=== PATIENT | female | born 1985 | race Caucasian/White ===

== ENCOUNTER 2021-12-10 14:42 | Outpatient (REF) | payer OTHER, SELFPAY ==
[2021-12-10 15:31] LABS: COVID-19 Test Negative (Negative); IDNOW Serial# 08D9AD1C
== END 2021-12-10 14:43 | disposition home or self-care (01) ==
LOC: HO.LAB 14:42
PROVIDERS: Visit Provider Internal Medicine
DX: Z20.822 Contact with and (suspected) exposure to COVID-19 (principal)
CPT/HCPCS: 87635; C9803

== ENCOUNTER 2021-12-19 11:28 | Outpatient (REF) | payer OTHER, SELFPAY ==
[2021-12-19 12:12] LABS: COVID-19 Test Negative (Negative); IDNOW Serial# 08D9AD1C
== END 2021-12-19 11:29 | disposition home or self-care (01) ==
LOC: HO.LAB 11:28
PROVIDERS: Visit Provider Internal Medicine
DX: Z20.822 Contact with and (suspected) exposure to COVID-19 (principal)
CPT/HCPCS: 87635; C9803

== ENCOUNTER 2022-06-26 11:48 | Emergency (ER) | payer OTHER, SELFPAY ==
[2022-06-26 11:49] VITALS: BP 104/71; PULSE 82; RESP 18; TEMP 36.4; O2SAT 100; BMI 26.9
[2022-06-26 12:18] LABS: Appearance Urine Clear; Color Urine Dark Yellow; Glucose Urine UA Negative (Negative); Leukocyte Esterase Urine Negative (Negative); Nitrite Urine Negative (Negative); PH 5.5 (5.0-9.0); UMIC TRIGGER UA YES; Urine Blood Moderate (2+) (Negative); Urine Ketones Trace mg/dL (Negative); Urine Protein Trace mg/dL (Neg-Trace)
[2022-06-26 12:21] LABS: Bacteria Urine None Seen (None Seen); WBC Urine 0-5 /HPF (0-5)
--- NOTE | 2022-06-26 12:49 | ED.GENADULT ---
HPI - General Adult General Chief complaint: General Medical <NIKITA Medina - Last Filed: 06/26/22 12:53> Stated complaint: Covid + <NIKITA Medina - Last Filed: 06/26/22 12:53> Time Seen by Provider: 06/26/22 13:19 <NIKITA Medina - Last Filed: 06/26/22 12:53> Source: patient and family (patient's mother) <NIKITA Law - Last Filed: 06/26/22 16:05> Mode of arrival: ambulatory <NIKITA Law Last Filed: 06/26/22 16:05> Limitations: no limitations <NIKITA Law Last Filed: 06/26/22 16:05> History of Present Illness HPI narrative: Patient is a 36 year old assigned female at with no reported medical history presenting to the emergency department today with right sided flank pain. Patient states that she is COVID-19 positive and has been having right sided flank pain. Patient states that she is nauseous. Patient states that she has been having difficulty urinating as well, when she urinates she feels as though hardly any is coming out. Patient denies any dizziness, lightheadedness, abdominal pain, vomiting, fever, chills, blurry vision, double vision, loss of vision, chest pain, difficulty breathing, shortness of breath, back pain, night sweats, pain with urination, blood in her urine or stool, syncope or a near syncopal episode, recent trauma or falls, bowel incontinence, bladder incontinence, bowel retention, bladder retention, or any other complaints at this time. <NIKITA Law - Last Filed: 06/26/22 16:05> Onset (ago): day(s) <NIKITA Law - Last Filed: 06/26/22 16:05> Location: right (flank) <NIKITA Law Last Filed: 06/26/22 16:05> Radiation: non-radiation <NIKITA Law Last Filed: 06/26/22 16:05> Severity: mild <NIKITA Law Last Filed: 06/26/22 16:05> Severity scale (1-10): 3 <NIKITA Law Last Filed: 06/26/22 16:05> Quality: dull <NIKITA Law - Last Filed: 06/26/22 16:05> Pain Consistency: constant <NIKITA Law Last Filed: 06/26/22 16:05> Relieving factors: none <NIKITA Law Last Filed: 06/26/22 16:05> Exacerbating factors: none <NIKITA Law Last Filed: 06/26/22 16:05> Associated symptoms: nausea/vomiting <NIKITA Law - Last Filed: 06/26/22 16:05> Treatments prior to arrival: none <NIKITA Law Last Filed: 06/26/22 16:05> Related Data Home medications: Previous Rx's Medication Instructions Recorded prednisone 20 mg tablet 20 mg PO DAILY 5 days #5 tabs 06/26/22 tamsulosin 0.4 mg capsule (Flomax) 0.4 mg PO DAILY #14 caps 06/26/22 <NIKITA Medina - Last Filed: 06/26/22 12:53> Allergies/adverse reactions: Allergies Allergy/AdvReac Type Severity Reaction Status Date / Time doxycycline AdvReac Nausea Verified 06/26/22 13:52 <NIKITA Medina - Last Filed: 06/26/22 12:53> Review of Systems Constitutional: Constitutional: Reports no additional constitutional complaints, Denies chills, Denies fever(s) and Denies night sweats <NIKITA Law - Last Filed: 06/26/22 16:05> Eyes: Eyes: Reports no additional eye complaints, Denies blurry vision, Denies change in vision, Denies diplopia, Denies eye discharge, Denies loss of vision and Denies eye pain <NIKITA Law - Last Filed: 06/26/22 16:05> ENT: Denies dizziness <NIKITA Law Last Filed: 06/26/22 16:05> Cardiovascular: Cardiovascular: Reports no additional cardiovascular complaints, Denies chest pain, Denies lightheadedness, Denies Loss of Consciousness and Denies dyspnea <NIKITA Law - Last Filed: 06/26/22 16:05> Respiratory: Respiratory: Reports no additional respiratory complaints and Denies dyspnea <NIKITA Law - Last Filed: 06/26/22 16:05> Gastrointestinal: Gastrointestinal: Reports no additional gastrointestinal complaints, Denies abdominal pain, Denies melena, Denies hematochezia, Denies change in bowel habits, Denies change in stool character and Reports nausea <NIKITA Law - Last Filed: 06/26/22 16:05> Genitourinary: Genitourinary: Denies hematuria, Denies urinary frequency, Denies dysuria, Reports flank pain (right sided), Denies urinary incontinence, Denies urinary hesitancy and Denies urinary urgency <NIKITA Law - Last Filed: 06/26/22 16:05> Musculoskeletal: Musculoskeletal: Reports no additional musculoskeletal complaints, Denies numbness and Denies tingling <NIKITA Law - Last Filed: 06/26/22 16:05> Neurologic: Denies dizziness, Denies loss of vision, Denies numbness and Denies tingling <NIKITA Law - Last Filed: 06/26/22 16:05> Psychiatric: Psychiatric: Reports no additional psychiatric complaints <NIKITA Law - Last Filed: 06/26/22 16:05> Endocrine: Endocrine: Reports no additional endocrine complaints <NIKITA Law - Last Filed: 06/26/22 16:05> Hematologic/Lymphatic: Hematologic/Lymphatic: Reports no additional hematologic/lymphatic complaints <NIKITA Law - Last Filed: 06/26/22 16:05> Allergic/Immunologic: Allergic/Immunologic: Reports no additional allergic/immunologic complaints <NIKITA Law - Last Filed: 06/26/22 16:05> PMF Past Medical History Attestation statement: The following information was validated with the patient. <NIKITA Law - Last Filed: 06/26/22 16:05> Source: old records reviewed, obtained from family (patient's mother) and nursing notes reviewed <NIKITA Law - Last Filed: 06/26/22 16:05> Medical History: Medical History Migraine <NIKITA Medina - Last Filed: 06/26/22 12:53> Social History Social History: Social History Smoked in Last 30 Days: No Use of substances other than those prescribed or required for medical reasons: No Advance Directives: No <NIKITA Medina - Last Filed: 06/26/22 12:53> Physical Exam ED Vital Signs: Vital Signs - 24 hr 06/26/22 11:49 Temperature 97.5 F Pulse Rate 82 Respiratory Rate 18 Blood Pressure 104/71 Pulse Oximetry 100 Oxygen Delivery Method Room Air BMI result Body Mass Index 26.9 <NIKITA Medina - Last Filed: 06/26/22 12:53> Vital Signs - 24 hr 06/26/22 11:49 Temperature 97.5 F Pulse Rate 82 Respiratory Rate 18 Blood Pressure 104/71 Pulse Oximetry 100 Oxygen Delivery Method Room Air BMI result Body Mass Index 26.9 <NIKITA Law - Last Filed: 06/26/22 16:05> Const General: cooperative, no acute distress, alert and awake <NIKITA Law - Last Filed: 06/26/22 16:05> Nutritional Appearance: well nourished <NIKITA Law - Last Filed: 06/26/22 16:05> Orientation/consciousness: patient oriented x3 <NIKITA Law - Last Filed: 06/26/22 16:05> Limitations: no limitations <NIKITA Law - Last Filed: 06/26/22 16:05> HENMT Head: Yes normal to inspection and Yes atraumatic <NIKITA Law - Last Filed: 06/26/22 16:05> Ears: hearing grossly normal bilaterally and external ears normal <NIKITA Law - Last Filed: 06/26/22 16:05> General nose exam: Normal external nose present, no nasal discharge noted and no epistaxis <NIKITA Law - Last Filed: 06/26/22 16:05> Face and sinus: Yes normal facial exam, No abrasion and No laceration <NIKITA Law Last Filed: 06/26/22 16:05> Mouth: Normal oral and palatal mucosa present, no drooling and no muffled voice <Beverly Mark [facility] Last Filed: 06/26/22 16:05> Eyes General: appearance normal, both eyes and all related structures <Beverly Mark [facility] Last Filed: 06/26/22 16:05> Periorbital: periorbital findings normal <Beverly Mark [facility] Last Filed: 06/26/22 16:05> Eyelids: Yes eyelids normal <Beverly Mark [facility] Last Filed: 06/26/22 16:05> Conjunctivae: conjunctivae normal <Beverly Mark [facility] Last Filed: 06/26/22 16:05> Pupils: Equal, round and reactive pupils present <Beverly Mark [facility] Last Filed: 06/26/22 16:05> EOM: EOMs intact bilaterally <Beverly Mark [facility] Last Filed: 06/26/22 16:05> Neck Neck: Yes normal visual inspection, Yes full ROM and Yes no lymphadenopathy <Beverly Mark [facility] Last Filed: 06/26/22 16:05> Chest Chest palpation & inspection: normal inspection of the chest <Beverly Mark [facility] Last Filed: 06/26/22 16:05> Resp Effort & Inspection: normal respiratory effort and able to speak in complete sentences <Beverly Mark [facility] Last Filed: 06/26/22 16:05> Auscultation: clear to auscultation bilaterally <Beverly Mark [facility] Last Filed: 06/26/22 16:05> Cardio Rate: regular rate <Beverly Mark [facility] Last Filed: 06/26/22 16:05> Rhythm: regular rhythm <Beverly Mark [facility] Last Filed: 06/26/22 16:05> GI Inspection: Yes normal to inspection <Beverly Mark [facility] Last Filed: 06/26/22 16:05> Palpation (GI): Soft to palpation, not firm, nontender and no guarding <Beverly Mark [place] - Last Filed: 06/26/22 16:05> General: Yes CVA tenderness on the right <Beverly Makr [place] - Last Filed: 06/26/22 16:05> Back/Spine/Pelvis Back: CVA tenderness <Beverly Mark [place] - Last Filed: 06/26/22 16:05> Neuro General: patient oriented x3 and moves all extremities <Beverly Mark NIKITA - Last Filed: 06/26/22 16:05> Cranial nerves: Yes Equal, round and reactive pupils present <Beverly Mark NIKITA - Last Filed: 06/26/22 16:05> Cognition (Neuro): normal cognition <Beverly Mark [place] - Last Filed: 06/26/22 16:05> Motor exam (neuro): 5/5 motor strength present throughout <Beverly Mark [place] - Last Filed: 06/26/22 16:05> Sensory Exam: Normal double simultaneous stimulation for sensation <Beverly Mark NIKITA - Last Filed: 06/26/22 16:05> Coordination: veitrm-po-evws test normal <Beverly Mark [place] - Last Filed: 06/26/22 16:05> Extrem General: Yes normal to inspection, Yes full ROM and Yes capillary refill normal <Beverly MarkNIKITA - Last Filed: 06/26/22 16:05> Psych Appearance: grossly normal <Beverly Mark [place] - Last Filed: 06/26/22 16:05> Mental Status: mental status grossly normal <Beverly Mark NIKITA - Last Filed: 06/26/22 16:05> Affect: normal affect <Beverly Mark [place] - Last Filed: 06/26/22 16:05> Attitude: cooperative <Beverly Mark NIKITA - Last Filed: 06/26/22 16:05> Thought process: Normal thought process present <Beverly MarkNIKITA - Last Filed: 06/26/22 16:05> Thought content: Normal thought content present <Beverly MarkNIKITA - Last Filed: 06/26/22 16:05> Insight: Good insight present (Psych) <Beverly MarkNIKITA - Last Filed: 06/26/22 16:05> Course Course Course Narrative: Rapid medical [id number] female presenting to the ER for evaluation of severe right-sided flank pain, nausea and vomiting that started at 8am today. Pain is severe and located in right flank, radiates to right lower abdomen. Has been home sick with COVID for the last 1 week. On arrival to the ER vital signs are stable, patient afebrile. She appears extremely uncomfortable, crawled over and pain with vomiting. Concern for possible kidney stone. Labs, UA, CT scan have been ordered. Plan per provider in the main ER. <NIKITA Medina - Last Filed: 06/26/22 12:53> Medications Administered Discontinued Medications Generic Name Dose Route Start Last Admin Trade Name Freq PRN Reason Stop Dose Admin Sodium Chloride 1,000 mls @ 999 mls/hr 06/26/22 13:30 06/26/22 15:13 Ns IV 06/26/22 14:30 Infused .Q1H1M LISA Infusion Ketorolac Tromethamine 15 mg 06/26/22 13:27 06/26/22 13:49 Ketorolac Tromethamine 15 Mg/Ml Vial IVPUSH 06/26/22 13:28 15 mg ONCE ONE Administration Ketorolac Tromethamine 15 mg 06/26/22 15:08 06/26/22 15:13 Ketorolac Tromethamine 15 Mg/Ml Vial IVPUSH 06/26/22 15:09 15 mg ONCE ONE Administration Ondansetron HCl 4 mg 06/26/22 12:48 06/26/22 12:52 Ondansetron Odt 4 Mg Tab.Rapdis TRANSLINGU 06/26/22 12:49 4 mg ONCE ONE Administration <NIKITA Medina - Last Filed: 06/26/22 12:53> Medications Administered Discontinued Medications Generic Name Dose Route Start Last Admin Trade Name Freq PRN Reason Stop Dose Admin Sodium Chloride 1,000 mls @ 999 mls/hr 06/26/22 13:30 06/26/22 15:13 Ns IV 06/26/22 14:30 Infused .Q1H1M LISA Infusion Ketorolac Tromethamine 15 mg 06/26/22 13:27 06/26/22 13:49 Ketorolac Tromethamine 15 Mg/Ml Vial IVPUSH 06/26/22 13:28 15 mg ONCE ONE Administration Ketorolac Tromethamine 15 mg 06/26/22 15:08 06/26/22 15:13 Ketorolac Tromethamine 15 Mg/Ml Vial IVPUSH 06/26/22 15:09 15 mg ONCE ONE Administration Ondansetron HCl 4 mg 06/26/22 12:48 06/26/22 12:52 Ondansetron Odt 4 Mg Tab.Erica MCCORDINGPal 06/26/22 12:49 4 mg ONCE ONE Administration <NIKITA Law - Last Filed: 06/26/22 16:05> Medical Decision Making Medical Decision Making MDM Narrative: Patient is a 36 year old assigned female at with no reported medical history presenting to the emergency department today with COVID-19 and right sided flank pain. Patient's physical exam showed right sided CVA tenderness but was otherwise unremarkable. Patient's blood work showed an elevated WBC count of 13.2. Patient's urine showed 11-20 RBCs but was otherwise unremarkable. Patient's abdominal CT showed mild right hydroureteronephrosis with a 0.3cm obstructing calculus at the right ureterovesicular junction. I explained my physical exam findings as well as all test results to the patient and the patient's mother. I answered all questions asked by the patient and the patient's mother. Patient received IV Toradol and fluids which she stated helped her symptoms significantly. I spoke to the urologist who recommended the patient be discharged with PO Flomax and Prednisone and follow up with their office next week. I stressed the importance of the patient taking her medication as prescribed. I stressed the importance of the patient following up with her primary care provider and a urologist. I stressed the importance of the patient returning to the emergency department immediately if her symptoms were to worsen or if she were to develop any dizziness, shortness of breath, difficulty breathing, chest pain, blurry vision, loss of vision, nausea, vomiting, abdominal pain, fever, chills, back pain, or any other complaints. Patient and the patient's mother verbalized agreement and understanding with this treatment plan and discharge. 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 <NIKITA Law - Last Filed: 06/26/22 16:05> Result Diagrams: : 06/26/22 13:33 06/26/22 13:33 <NIKITA Medina - Last Filed: 06/26/22 12:53> Labs: Lab Results 06/26/22 06/26/22 06/26/22 Range/Units 12:08 12:08 13:33 WBC 13.2 H (4.8-10.8) X10*3/uL RBC 5.08 (4.20-5.50) X10*6/uL Hgb 14.6 (12.0-16.0) g/dl Hct 43.0 (37.0-47.0) % MCV 84.6 (80.0-98.0) fL MCH 28.7 (27.0-33.0) pg MCHC 34.0 (31.0-35.0) g/dl RDW 12.1 (11.0-16.0) % Plt Count 361 (160-400) X10*3/uL MPV 10.1 (9.4-12.3) fL Absolute Nucleated RBC 0.000 (0.0-0.012) X10*3/uL Nucleated RBC % (auto) 0.0 (0.0-0.2) /100WBC Sodium (135-145) mmol/L Potassium (3.3-5.1) mmol/L Chloride (96-108) mmol/L Carbon Dioxide (22-29) mmol/L Anion Gap (12-20) BUN (9-16) mg/dL Creatinine (0.5-1.4) mg/dL Estim Creat Clear Calc Estimated GFR Random Glucose (60-115) mg/dL Calcium (8.4-10.2) mg/dL Total Bilirubin (0.0-1.0) mg/dL AST (5-31) U/L ALT (0-31) U/L Alkaline Phosphatase (39-117) U/L Total Protein (6.5-8.0) g/dL Albumin (3.5-5.0) g/dL Urine Color Dark Yellow Urine Appearance Clear Urine pH 5.5 (5.0-9.0) Ur Specific [place] 1.020 (1.005-1.025) Urine Protein Trace (Neg-Trace) mg/dL Urine Glucose (UA) Negative (Negative) mg/dL Urine Ketones Trace (Negative) mg/dL Urine Blood Moderate (2+) H (Negative) Urine Nitrite Negative (Negative) Ur Leukocyte Esterase Negative (Negative) Urine RBC 11-20 H (0-2) /HPF Urine WBC 0-5 (0-5) /HPF Ur Squamous Epith Cells 6-10 (0-2) /HPF Urine Bacteria None Seen (None Seen) Hyaline Casts 3-5 (0-2) /LPF Urine Test NEGATIVE (NEGATIVE) 06/26/22 Range/Units 13:33 WBC (4.8-10.8) X10*3/uL RBC (4.20-5.50) X10*6/uL Hgb (12.0-16.0) g/dl Hct (37.0-47.0) % MCV (80.0-98.0) fL MCH (27.0-33.0) pg MCHC (31.0-35.0) g/dl RDW (11.0-16.0) % Plt Count (160-400) X10*3/uL MPV (9.4-12.3) fL Absolute Nucleated RBC (0.0-0.012) X10*3/uL Nucleated RBC % (auto) (0.0-0.2) /100WBC Sodium 141 (135-145) mmol/L Potassium 4.7 (3.3-5.1) mmol/L Chloride 107 (96-108) mmol/L Carbon Dioxide 24 (22-29) mmol/L Anion Gap 15 (12-20) BUN 15 (9-16) mg/dL Creatinine 0.83 (0.5-1.4) mg/dL Estim Creat Clear Calc 91.5 Estimated GFR > 60 Random Glucose 140 H (60-115) mg/dL Calcium 9.7 (8.4-10.2) mg/dL Total Bilirubin 0.7 (0.0-1.0) mg/dL AST 20 (5-31) U/L ALT 16 (0-31) U/L Alkaline Phosphatase 42 (39-117) U/L Total Protein 7.4 (6.5-8.0) g/dL Albumin 4.5 (3.5-5.0) g/dL Urine Color Urine Appearance Urine pH (5.0-9.0) Ur Specific [place] (1.005-1.025) Urine Protein (Neg-Trace) mg/dL Urine Glucose (UA) (Negative) mg/dL Urine Ketones (Negative) mg/dL Urine Blood (Negative) Urine Nitrite (Negative) Ur Leukocyte Esterase (Negative) Urine RBC (0-2) /HPF Urine WBC (0-5) /HPF Ur Squamous Epith Cells (0-2) /HPF Urine Bacteria (None Seen) Hyaline Casts (0-2) /LPF Urine Test (NEGATIVE) <NIKITA Medina - Last Filed: 06/26/22 12:53> Lab Results 06/26/22 06/26/22 06/26/22 Range/Units 12:08 12:08 13:33 WBC 13.2 H (4.8-10.8) X10*3/uL RBC 5.08 (4.20-5.50) X10*6/uL Hgb 14.6 (12.0-16.0) g/dl Hct 43.0 (37.0-47.0) % MCV 84.6 (80.0-98.0) fL MCH 28.7 (27.0-33.0) pg MCHC 34.0 (31.0-35.0) g/dl RDW 12.1 (11.0-16.0) % Plt Count 361 (160-400) X10*3/uL MPV 10.1 (9.4-12.3) fL Absolute Nucleated RBC 0.000 (0.0-0.012) X10*3/uL Nucleated RBC % (auto) 0.0 (0.0-0.2) /100WBC Sodium (135-145) mmol/L Potassium (3.3-5.1) mmol/L Chloride (96-108) mmol/L Carbon Dioxide (22-29) mmol/L Anion Gap (12-20) BUN (9-16) mg/dL Creatinine (0.5-1.4) mg/dL Estim Creat Clear Calc Estimated GFR Random Glucose (60-115) mg/dL Calcium (8.4-10.2) mg/dL Total Bilirubin (0.0-1.0) mg/dL AST (5-31) U/L ALT (0-31) U/L Alkaline Phosphatase (39-117) U/L Total Protein (6.5-8.0) g/dL Albumin (3.5-5.0) g/dL Urine Color Dark Yellow Urine Appearance Clear Urine pH 5.5 (5.0-9.0) Ur Specific [place] 1.020 (1.005-1.025) Urine Protein Trace (Neg-Trace) mg/dL Urine Glucose (UA) Negative (Negative) mg/dL Urine Ketones Trace (Negative) mg/dL Urine Blood Moderate (2+) H (Negative) Urine Nitrite Negative (Negative) Ur Leukocyte Esterase Negative (Negative) Urine RBC 11-20 H (0-2) /HPF Urine WBC 0-5 (0-5) /HPF Ur Squamous Epith Cells 6-10 (0-2) /HPF Urine Bacteria None Seen (None Seen) Hyaline Casts 3-5 (0-2) /LPF Urine Test NEGATIVE (NEGATIVE) 06/26/ Range/Units 13:33 WBC (4.8-10.8) X10*3/uL RBC (4.20-5.50) X10*6/uL Hgb (12.0-16.0) g/dl Hct (37.0-47.0) % MCV (80.0-98.0) fL MCH (27.0-33.0) pg MCHC (31.0-35.0) g/dl RDW (11.0-16.0) % Plt Count (160-400) X10*3/uL MPV (9.4-12.3) fL Absolute Nucleated RBC (0.0-0.012) X10*3/uL Nucleated RBC % (auto) (0.0-0.2) /100WBC Sodium 141 (135-145) mmol/L Potassium 4.7 (3.3-5.1) mmol/L Chloride 107 (96-108) mmol/L Carbon Dioxide 24 (22-29) mmol/L Anion Gap 15 (12-20) BUN 15 (9-16) mg/dL Creatinine 0.83 (0.5-1.4) mg/dL Estim Creat Clear Calc 91.5 Estimated GFR > 60 Random Glucose 140 H (60-115) mg/dL Calcium 9.7 (8.4-10.2) mg/dL Total Bilirubin 0.7 (0.0-1.0) mg/dL AST 20 (5-31) U/L ALT 16 (0-31) U/L Alkaline Phosphatase 42 (39-117) U/L Total Protein 7.4 (6.5-8.0) g/dL Albumin 4.5 (3.5-5.0) g/dL Urine Color Urine Appearance Urine pH (5.0-9.0) Ur Specific [place] (1.005-1.025) Urine Protein (Neg-Trace) mg/dL Urine Glucose (UA) (Negative) mg/dL Urine Ketones (Negative) mg/dL Urine Blood (Negative) Urine Nitrite (Negative) Ur Leukocyte Esterase (Negative) Urine RBC (0-2) /HPF Urine WBC (0-5) /HPF Ur Squamous Epith Cells (0-2) /HPF Urine Bacteria (None Seen) Hyaline Casts (0-2) /LPF Urine Test (NEGATIVE) <NIKITA Law - Last Filed: 06/26/22 16:05> Radiology Impression Discussion of test interpretation with radiology: I have reviewed the radiologist's reading. <NIKITA Law - Last Filed: 06/26/22 16:05> Radiologist Impression: EXAMINATION: CT ABDOMEN AND PELVIS WITHOUT CONTRAST? CLINICAL INFORMATION: Right flank pain. Hematuria.? COMPARISON: None? TECHNIQUE: Multidetector volumetric imaging was performed from the superior aspect of the liver through the pubic symphysis. Sagittal and coronal reformatted images were obtained on the technologist's workstation.? This CT examination was performed using dose optimization techniques as appropriate, variously including the following: *Automated exposure control *Adjustment of mA and/or kV according to patient size (this includes techniques or standardized protocols for targeted exams where dose is matched to indication/reason for exam; i.e. extremities or head) *Use of iterative reconstruction technique DLP: 674 mGy-cm FINDINGS: LUNG BASES: The visualized lung bases are unremarkable.? LIVER, GALLBLADDER, AND BILIARY TREE: The liver is normal in size, shape, and attenuation. No focal hepatic lesion or biliary ductal dilatation is present. The gallbladder is unremarkable with no evidence of radiopaque gallstones, gallbladder wall thickening, or obvious pericholecystic inflammatory changes.? PANCREAS: Unremarkable.? SPLEEN: Unremarkable.? ADRENAL GLANDS: Unremarkable.? KIDNEYS AND URETERS: The kidneys are normal in size, shape, and attenuation. Mild right hydroureteronephrosis with perinephric and periureteral fat stranding. There is a 0.3 cm calculus at the right ureterovesicular junction. No additional calculi seen. No left hydronephrosis. BLADDER: Unremarkable.? GASTROINTESTINAL TRACT: The small and large bowel are unremarkable. The appendix is unremarkable.? ABDOMINAL WALL: No significant hernia is appreciated.? LYMPH NODES: Normal. VASCULAR: Unremarkable. PELVIC VISCERA: The uterus and adnexa are unremarkable. Trace pelvic free fluid is likely physiologic.? OSSEOUS STRUCTURES: No acute or suspicious osseous abnormality. Mild degenerative changes of the spine.? CT/CT abdomen pelvis wo IV con IMPRESSION: Mild right hydroureteronephrosis with a 0.3 cm obstructing calculus at the right ureterovesicular junction. ? Fleischner guidelines were followed. Dictated By: Raji Alexander MD Signed By: Electronically signed by Raji Alexander MD 06/26/22 1433 <NIKITA Law - Last Filed: 06/26/22 16:05> Independent Historian Clinical information obtained from an independent historian. History obtained from or confirmed by: Parent (patient's mother) <NIKITA Law - Last Filed: 06/26/22 16:05> Discharge Plan Discharge Clinical Impression: Calculus, renal, COVID-19 <NIKITA Medina - Last Filed: 06/26/22 12:53> Patient Disposition: Home, Self-Care <NIKITA Medina - Last Filed: 06/26/22 12:53> Instructions: Kidney Stones (ED), COVID-19 (Coronavirus Disease 2019) (ED) <NIKITA Medina - Last Filed: 06/26/22 12:53> Additional Instructions: Follow up with your primary care provider. Return to the emergency department immediately if your symptoms worsen or if you develop any dizziness, shortness of breath, difficulty breathing, chest pain, blurry vision, loss of vision, nausea, vomiting, abdominal pain, fever, chills, back pain, or any other complaints. <NIKITA Medina - Last Filed: 06/26/22 12:53> Prescriptions: New tamsulosin [Flomax] 0.4 mg capsule 0.4 mg PO DAILY Qty: 14 0RF prednisone 20 mg tablet 20 mg PO DAILY 5 Days Qty: 5 0RF <NIKITA Medina - Last Filed: 06/26/22 12:53> Referrals: [facility] [place] Family Medicine [Provider Group] (Call to establish and follow up with a primary care provider. If you already have a primary care provider, please follow up with them. ) [facility] Primary Care, [place] [Provider Group] (Call to establish and follow up with a primary care provider. If you already have a primary care provider, please follow up with them. ) [facility] [place] Primary Care,[place] [Provider Group] (Call to establish and follow up with a primary care provider. If you already have a primary care provider, please follow up with them. ) [facility] [Provider Group] (Call to establish and follow up with a urologist. ) <NIKITA Medina - Last Filed: 06/26/22 12:53> Stand Alone Forms: Work/School Release <NIKITA Medina - Last Filed: 06/26/22 12:53> Interventions: ED Discharge Assessment Last Done: 06/26/22 15:16 <NIKITA Medina - Last Filed: 06/26/22 12:53> Discharge Date/Time: 06/26/22 15:17 <NIKITA Medina - Last Filed: 06/26/22 12:53> Print Language: Hebrew <NIKITA Medina - Last Filed: 06/26/22 12:53>
[2022-06-26] MEDS: Ondansetron ODT 4 MG TAB.RAPDIS TRANSLINGU (12:52)
[2022-06-26 13:24] LABS: UPreg QC Valid YES; Urine Pregnancy NEGATIVE (NEGATIVE)
[2022-06-26 13:40] LABS: Hemoglobin 14.6 g/dl (12.0-16.0); Mean Corpuscular Hemoglobin 28.7 pg (27.0-33.0); Mean Corpuscular Volume 84.6 fL (80.0-98.0); Mean Platelet Volume 10.1 fL (9.4-12.3); Platelet Count 361 X10*3/uL (160-400); Red Blood Count 5.08 X10*6/uL (4.20-5.50); Red Cell Distribution Width 12.1 % (11.0-16.0); White Blood Count 13.2 X10*3/uL (4.8-10.8)
[2022-06-26] MEDS: Ketorolac Tromethamine 15 MG/ML VIAL IVPUSH ×2 (13:49→15:13)
[2022-06-26] MEDS: 0.9 % Sodium Chloride 1,000 ML 999 ML IV (13:49)
[2022-06-26 14:01] LABS: Alanine Aminotransferase 16 U/L (0-31); Albumin Level 4.5 g/dL (3.5-5.0); Alkaline Phosphatase 42 U/L (39-117); Anion Gap 15 (12-20); Aspartate Amino Transferase 20 U/L (5-31); Bilirubin Total 0.7 mg/dL (0.0-1.0); Blood Urea Nitrogen 15 mg/dL (9-16); Calcium 9.7 mg/dL (8.4-10.2); Carbon Dioxide 24 mmol/L (22-29); Chloride 107 mmol/L (96-108); Creatinine Clr Calc Pharmacy 91.5; Estimated Glomerular Filt Rate > 60; Glucose Random 140 mg/dL (60-115); Potassium 4.7 mmol/L (3.3-5.1); Sodium 141 mmol/L (135-145); Total Protein 7.4 g/dL (6.5-8.0)
== END 2022-06-26 15:17 | disposition home or self-care (01) ==
PROVIDERS: Emergency Provider Student in an Organized Health Care Education/Training Program
DX: U07.1 COVID-19 (principal); N20.0 Calculus of kidney; Z79.899 Other long term (current) drug therapy
CPT/HCPCS: 36415; 74176; 80053; 81001; 81025; 85027; 96361; 96374; 96376; 99284; J1885

== ENCOUNTER 2022-07-08 10:24 | Outpatient (REF) | payer OTHER, SELFPAY ==
[2022-07-08 17:46] LABS: Urine Cytology See Pathology rpt
== END 2022-07-08 10:25 | disposition home or self-care (01) ==
LOC: HO.LAB 10:24
PROVIDERS: Visit Provider Nurse Practitioner Family
DX: N20.0 Calculus of kidney (principal); R31.9 Hematuria, unspecified; Z79.899 Other long term (current) drug therapy
CPT/HCPCS: 88112

== ENCOUNTER 2022-07-08 11:47 | Outpatient (REF) | payer OTHER, SELFPAY ==
[2022-07-08 14:44] LABS: Anion Gap 12 (12-20); Blood Urea Nitrogen 13 mg/dL (9-16); Calcium 9.5 mg/dL (8.4-10.2); Carbon Dioxide 26 mmol/L (22-29); Chloride 104 mmol/L (96-108); Estimated Glomerular Filt Rate > 60; Glucose Random 85 mg/dL (60-115); Phosphorus 3.3 mg/dL (2.7-4.5); Potassium 4.6 mmol/L (3.3-5.1); Sodium 137 mmol/L (135-145)
[2022-07-10 07:58] LABS: Calcium (PTHI) 9.5 mg/dL (8.6-10.2); PTHI 48 pg/mL (16-77)
== END 2022-07-08 11:48 | disposition home or self-care (01) ==
LOC: HO.10HDL 11:47
PROVIDERS: Visit Provider Nurse Practitioner Family
DX: N20.0 Calculus of kidney (principal)
CPT/HCPCS: 36415; 80048; 83735; 83970; 84100

== ENCOUNTER 2022-09-21 07:39 | Outpatient (REF) | payer OTHER, SELFPAY ==
--- NOTE | ~2022-09-21 | US_ITS ---
EXAMINATION: US RETROPERITONEAL LIMITED (RENAL ONLY) CLINICAL INFORMATION: Calculus of kidney. COMPARISON: CT abdomen and pelvis without contrast 06/26/2022. TECHNIQUE: Real-time imaging of the kidneys. FINDINGS: RIGHT KIDNEY: 11.8 x 4.8 x 5.5 cm (SAG x AP x TRV). The kidney is normal in size, contour, and echogenicity. Renal cortical thickness is normal. No calculi or focal parenchymal lesions. No hydronephrosis. LEFT KIDNEY: 12.7 x 5.5 x 5.3 cm (SAG x AP x TRV). The kidney is normal in size, contour, and echogenicity. Renal cortical thickness is normal. No calculi or focal parenchymal lesions. No hydronephrosis. US/US renal BI IMPRESSION: Unremarkable renal ultrasound.
== END 2022-09-21 07:40 | disposition home or self-care (01) ==
LOC: HO.US 07:39
PROVIDERS: PCP Nurse Practitioner Family; Visit Provider Nurse Practitioner Family
DX: N20.0 Calculus of kidney (principal)
CPT/HCPCS: 76775

== ENCOUNTER → 2022-10-22 08:34 | Outpatient (BNVA) | payer OTHER, SELFPAY | PROVIDERS: PCP Nurse Practitioner Family; Visit Provider Nurse Practitioner Family | DX: Z13.89 Encounter for screening for other disorder (principal) ==

== ENCOUNTER 2023-04-14 08:16 | Outpatient (REF) | payer OTHER, SELFPAY ==
--- NOTE | ~2023-04-14 | US_ITS ---
EXAMINATION: US RETROPERITONEAL COMPLETE (RENAL) CLINICAL INFORMATION: Calculus of kidney. COMPARISON: Bilateral renal ultrasound dated 09/21/2022. CT abdomen and pelvis without contrast dated 06/26/2022. TECHNIQUE: Real-time imaging of the kidneys and bladder. FINDINGS: RIGHT KIDNEY: 11.5 x 4.2 x 6.7 cm (SAG x AP x TRV). The kidney is normal in size, contour, and echogenicity. Renal cortical thickness is normal. No renal calculi or focal parenchymal lesions. New trace right hydronephrosis with question of possible debris layering within the collecting system. LEFT KIDNEY: 12.6 x 5.5 x 6.0 cm (SAG x AP x TRV). The kidney is normal in size, contour, and echogenicity. Renal cortical thickness is normal. No calculi or focal parenchymal lesions. No hydronephrosis. BLADDER: Well distended and normal. Bilateral ureteral jets are demonstrated. Prevoid bladder volume is 557 mL. Postvoid bladder volume is 59 mL. US/US retroperitoneal comp IMPRESSION: 1. New trace right hydronephrosis with question of possible debris layering within the collecting system, recommend correlation with urinalysis and any symptoms of infection. 2. Small postvoid bladder residual of 59 mL.
== END 2023-04-14 08:17 | disposition home or self-care (01) ==
LOC: HO.HMGCX 08:16
PROVIDERS: PCP Nurse Practitioner Family; Visit Provider Nurse Practitioner Family
DX: N20.0 Calculus of kidney (principal); N32.81 Overactive bladder
CPT/HCPCS: 76770

== ENCOUNTER 2023-04-23 08:14 | Outpatient (AMB) | payer OTHER, SELFPAY ==
--- NOTE | 2023-04-23 08:26 | MHC.OFFVIS ---
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 Conte. She presents to the office today for a follow up of her nephrolthiasis. Recent renal imaging results reviewed with the patient today. Right kidney with trace right hydronephrosis with question of possible debris layering within the collecting system. Left kidney with no calculi, lesions, and or hydronephrosis. The bladder is well distended and normal. Bilateral ureteral jets are demonstrated. Pre void bladder volume is approximately 550 mL. Postvoid bladder volume is approximately 60 mL. In office urinalysis results reviewed with the patient today. She denies any bothersome urinary issues or concerns at this time. Previous workup has included a 24 hour urine collection and nephrolithiasis labs. She otherwise denies urinary urgency, incontinence, nocturia, hematuria, dysuria, foul smelling urine, changes to urinary stream, flank pain, fever, and or chills. [facility] Medical History Right nephrolithiasis Migraine Review of Systems Const All systems reviewed & are unremarkable except as noted in HPI and below Reports no additional complaints Eyes Reports no additional complaints ENT Reports no additional complaints Card Reports no additional complaints Resp Reports no additional complaints GI Reports no additional complaints Reports as per HPI Musc Reports no additional complaints Neuro Reports no additional complaints Psych Reports no additional complaints Endo Reports no additional complaints Physical Exam Const General: cooperative, healthy appearing, comfortable, no acute distress, well developed, alert and awake Orientation/consciousness: patient oriented x3 Limitations: no limitations HEENT Head: Yes normal to inspection, Yes normocephalic and Yes atraumatic Ears: hearing grossly normal bilaterally Eyes General: appearance normal, both eyes and all related structures Neck Neck: Yes normal visual inspection and Yes trachea midline Chest Chest palpation & inspection: normal inspection of the chest Resp Effort & Inspection: normal respiratory effort and able to speak in complete sentences Cardio Rate: regular rate General: Yes no CVA tenderness Back/Spine/Pelvis Back: no CVA tenderness Skin General skin exam: no rashes or lesions noted Neuro General: patient oriented x3 Extrem General: Yes normal to inspection Psych Appearance: grossly normal and well kempt Mental Status: mental status grossly normal Speech and movement: Normal speech and movement present and Clear speech present Affect: normal affect Attitude: cooperative Thought process: Normal thought process present Thought content: Normal thought content present Insight: Good insight present (Psych) Judgement: Good judgement present (Psych) Results AMB Urinalysis, Automated UA Leukoctes 0 Mike/uL Last Edit by [employer] on 04/23/23 08:42 UA Nitrite Negative Last Edit by [employer] on 04/23/23 08:42 UA Urobilinogen 0.2 mg/dL Last Edit by [employer] on 04/23/23 08:42 UA Protein 0 mg/dL Last Edit by [employer] on 04/23/23 08:42 UA pH 6.0 Last Edit by [employer] on 04/23/23 08:42 UA Blood 10 Kevin/uL Last Edit by [employer] on 04/23/23 08:42 UA Specific [place] 1.020 Last Edit by [employer] on 04/23/23 08:42 UA Ketone Negative Last Edit by [employer] on 04/23/23 08:42 UA Bilirubin 0 mg/dL Last Edit by [employer] on 04/23/23 08:42 UA Glucose 0 mg/dL Last Edit by [employer] on 04/23/23 08:42 Results Reviewed Results Reviewed: Laboratory Last Values Urine pH (Auto) 6.0 04/23/23 08:32 Specific [place] (Auto) 1.020 04/23/23 08:32 Urine Protein (Auto) 0 mg/dL 04/23/23 08:32 Glucose (UA)(Auto) 0 mg/dL 04/23/23 08:32 Urine Ketones (Auto) Negative 04/23/23 08:32 Urine Blood (Auto) 10 Kevin/uL 04/23/23 08:32 Urine Nitrite (Auto) Negative 04/23/23 08:32 Urine Bilirubin (Auto) 0 mg/dL 04/23/23 08:32 Urine Urobilinogen (Auto) 0.2 mg/dL 04/23/23 08:32 Leukocyte Esterase (Auto) 0 Mike/uL 04/23/23 08:32 Date of Service: 04/14/23 EXAMINATION: US RETROPERITONEAL COMPLETE (RENAL) FINDINGS: RIGHT KIDNEY: 11.5 x 4.2 x 6.7 cm (SAG x AP x TRV). The kidney is normal in size, contour, and echogenicity. Renal cortical thickness is normal. No renal calculi or focal parenchymal lesions. New trace right hydronephrosis with question of possible debris layering within the collecting system. LEFT KIDNEY: 12.6 x 5.5 x 6.0 cm (SAG x AP x TRV). The kidney is normal in size, contour, and echogenicity. Renal cortical thickness is normal. No calculi or focal parenchymal lesions. No hydronephrosis. BLADDER: Well distended and normal. Bilateral ureteral jets are demonstrated. Prevoid bladder volume is 557 mL. Postvoid bladder volume is 59 mL. IMPRESSION: 1. New trace right hydronephrosis with question of possible debris layering within the collecting system, recommend correlation with urinalysis and any symptoms of infection. 2. Small postvoid bladder residual of 59 mL. Assessment & Plan Assessment & Plan (1) Right nephrolithiasis: Code(s): N20.0 - Calculus of kidney (2) Overactive bladder: Code(s): N32.81 - Overactive bladder Plan In office urinalysis results reviewed with the patient today; as noted above; will send for urine culture as recommended by imaging Educated and encouraged to continue drinking adequate amount of fluid daily. Continue adding 1 oz of lemon juice to water daily. Patient denies any bothersome urinary issues or concerns at this time. Patient reports to be happy with current voiding parameters. Renal ultrasound in one year Follow-up in 1 year with imaging to be completed prior; or sooner with any issues, concerns, and or questions Orders: Orders AMB Urinalysis Automated 04/23/23 Z13.9 - Encounter for screening, unspecified US renal BI 364 Days N20.0 - Calculus of kidney Urine Culture 04/23/23 N32.81 - Overactive bladder Patient Instructions: The patient had an opportunity to ask questions regarding the treatment plan. All questions were answered. Physical exam, labs, and imaging were discussed and reviewed in detail. As well as risks, benefits, and discussion of treatment choices. No major barriers to understanding were identified. The patient expressed understanding and agreement with the above treatment plan. The patient was made aware they should contact our office by phone for worsening of their current condition, the appearance of new symptoms, or with any questions or concerns. Compliance is encouraged with any medications and follow up testing that is ordered. It is a privilege to be allowed the opportunity to participate in? your urological care.? Again, if you have any questions or concerns If you have any questions or concerns please do not hesitate to contact me. The office is [phone]. This note is constructed using voice recognition software. While every effort has been made to ensure accuracy asbestos shingle roofer errors may have been included. Yours sincerely, LESLY Elena Coding Level of Care Code Est Pt Level 3 (21615) Diagnoses Right nephrolithiasis N20.0 Overactive bladder N32.81
== END 2023-04-23 09:08 | disposition home or self-care (01) ==
PROVIDERS: Visit Provider Nurse Practitioner Family
DX: N20.0 Calculus of kidney (principal); N32.81 Overactive bladder
CPT/HCPCS: 99213

== ENCOUNTER 2023-04-23 08:14 | Outpatient (REF) | payer OTHER, SELFPAY | END 2023-04-23 08:15 | disposition home or self-care (01) | LOC: HO.LNP 08:14 | PROVIDERS: Visit Provider Nurse Practitioner Family | DX: N32.81 Overactive bladder (principal); N20.0 Calculus of kidney; Z79.899 Other long term (current) drug therapy | CPT/HCPCS: 81003; 87086 ==

== ENCOUNTER 2024-04-18 07:37 | Outpatient (REF) | payer OTHER, SELFPAY ==
--- NOTE | ~2024-04-18 | US_ITS ---
EXAMINATION: US RETROPERITONEAL LIMITED (RENAL ONLY) CLINICAL INFORMATION: Renal stone. COMPARISON: None available. TECHNIQUE: Standard renal ultrasound performed. FINDINGS: RIGHT KIDNEY: 10.9 x 4.5 x 4.9 cm (SAG x AP x TRV). The kidney is normal in size, contour, and echogenicity. Renal cortical thickness is normal. No calculi or focal parenchymal lesions. No hydronephrosis. LEFT KIDNEY: 12 x 5.7 x 5.1 cm (SAG x AP x TRV). The kidney is normal in size, contour, and echogenicity. Renal cortical thickness is normal. No calculi or focal parenchymal lesions. No hydronephrosis. US/US renal BI IMPRESSION: No ultrasound evidence of kidney stones or hydronephrosis. Electronically signed by: Marcelina Tejada MD 05/21/2024 07:54 PM SANJANA SANTACRUZ
== END 2024-04-18 07:38 | disposition home or self-care (01) ==
LOC: HO.US 07:37
PROVIDERS: PCP Nurse Practitioner Family; Visit Provider Nurse Practitioner Family
DX: N20.0 Calculus of kidney (principal)
CPT/HCPCS: 76775

== ENCOUNTER 2024-06-12 07:43 | Outpatient (AMB) | payer OTHER, SELFPAY ==
--- NOTE | 2024-06-12 07:46 | MHC.OFFVIS ---
Intake Visit Reasons: 1y/US(set) Intake Note: Patient is present for 1y/US Urology Medication:VITAMIN B2 Antibiotic Allergy:DOXYCYCLINE Blood Thinner:NONE Internal Medicine Veterinary Technician Required: No Accompanied by: Self / Same As Patient Allergies doxycycline Adverse Reaction (Verified 06/12/24 09:30) Nausea Medication List - Last Reconciled 06/12/24 by LESLY Elena naproxen 500 mg PO BID PRN propranolol ER 60 mg PO DAILY riboflavin (vitamin B2) 400 mg PO DAILY sumatriptan succinate 50 - 100 mg PO DAILY PRN HPI Comments Details: Jasmyne is a pleasant 38-year-old female patient of Dr. Conte. She presents to the office today for a follow up of her nephrolthiasis. Discussed with the patient today she reports to be doing and feeling well. Recent renal imaging results reviewed with the patient today. Bilateral kidneys with no calculi, lesions, and or hydronephrosis noted. When asked she currently denies any bothersome urinary issues or concerns. She reports following up with her PCP for ongoing issues with constipation. In office urinalysis results reviewed with the patient today. PH 5.5. We discussed importance of adequate hydration relation to constipation, nephrolithiasis, and overall health and well-being. We also discussed microscopic hematuria. We discussed potential causes of microscopic hematuria as well as further workup in risks and benefits of these interventions. She denies urinary urgency, incontinence, nocturia, hematuria, dysuria, foul smelling urine, changes to urinary stream, flank pain, fever, and or chills. She discusses recently downloading an brenda on her phone to assist with reminding her to drink water daily as she knows she does not drink enough. During last office visit urine was sent for urine culture as previous imaging had been recommending correlation with urinalysis. Urine culture results were reviewed with the patient today 04/26 no growth. She otherwise offers no other issues or concerns at this time. 07/27 Urine cytology: Negative for high-grade urothelial carcinoma. COUNT INCLUDES THE [facility] Medical History Right nephrolithiasis Migraine Review of Systems Const All systems reviewed & are unremarkable except as noted in HPI and below Reports no additional complaints Eyes Reports no additional complaints ENT Reports no additional complaints Card Reports no additional complaints Resp Reports no additional complaints GI Reports no additional complaints Reports as per HPI Musc Reports no additional complaints Neuro Reports no additional complaints Psych Reports no additional complaints Endo Reports no additional complaints Physical Exam Const General: cooperative, healthy appearing, comfortable, no acute distress, well developed, alert and awake Orientation/consciousness: patient oriented x3 Limitations: no limitations HEENT Head: Yes normal to inspection, Yes normocephalic and Yes atraumatic Ears: hearing grossly normal bilaterally Eyes General: appearance normal, both eyes and all related structures Neck Neck: Yes normal visual inspection and Yes trachea midline Chest Chest palpation & inspection: normal inspection of the chest Resp Effort & Inspection: normal respiratory effort and able to speak in complete sentences Cardio Rate: regular rate General: Yes no CVA tenderness Back/Spine/Pelvis Back: no CVA tenderness Skin General skin exam: no rashes or lesions noted Neuro General: patient oriented x3 Extrem General: Yes normal to inspection Psych Appearance: grossly normal and well kempt Mental Status: mental status grossly normal Speech and movement: Normal speech and movement present and Clear speech present Affect: normal affect Attitude: cooperative Thought process: Normal thought process present Thought content: Normal thought content present Insight: Good insight present (Psych) Judgement: Good judgement present (Psych) Results AMB Urinalysis, Automated UA Leukoctes 0 Mike/uL Last Edit by Luis Fernandes LPN on 06/12/24 08:14 UA Nitrite Negative Last Edit by Luis Fernandes LPN on 06/12/24 08:14 UA Urobilinogen 0.2 mg/dL Last Edit by Luis Fernandes LPN on 06/12/24 08:14 UA Protein 30 mg/dL Last Edit by Luis Fernandes LPN on 06/12/24 08:14 UA pH 5.5 Last Edit by Luis Fernandes LPN on 06/12/24 08:14 UA Blood 80 Kevin/uL Last Edit by Luis Fernandes LPN on 06/12/24 08:14 UA Specific [place] 1.030 Last Edit by Luis Fernandes LPN on 06/12/24 08:14 UA Ketone Negative Last Edit by Luis Fernandes LPN on 06/12/24 08:14 UA Bilirubin 1 mg/dL Last Edit by Luis Fernandes LPN on 06/12/24 08:14 UA Glucose 0 mg/dL Last Edit by Luis Fernandes LPN on 06/12/24 08:14 Results Reviewed Results Reviewed: Laboratory Last Values Urine pH (Auto) 5.5 06/12/24 08:05 Specific [place] (Auto) 1.030 06/12/24 08:05 Urine Protein (Auto) 30 mg/dL 06/12/24 08:05 Glucose (UA)(Auto) 0 mg/dL 06/12/24 08:05 Urine Ketones (Auto) Negative 06/12/24 08:05 Urine Blood (Auto) 80 Kevin/uL 06/12/24 08:05 Urine Nitrite (Auto) Negative 06/12/24 08:05 Urine Bilirubin (Auto) 1 mg/dL 06/12/24 08:05 Urine Urobilinogen (Auto) 0.2 mg/dL 06/12/24 08:05 Leukocyte Esterase (Auto) 0 Mike/uL 06/12/24 08:05 Date of Service: 04/18/24 EXAMINATION: US RETROPERITONEAL LIMITED (RENAL ONLY) FINDINGS: RIGHT KIDNEY: 10.9 x 4.5 x 4.9 cm (SAG x AP x TRV). The kidney is normal in size, contour, and echogenicity. Renal cortical thickness is normal. No calculi or focal parenchymal lesions. No hydronephrosis. LEFT KIDNEY: 12 x 5.7 x 5.1 cm (SAG x AP x TRV). The kidney is normal in size, contour, and echogenicity. Renal cortical thickness is normal. No calculi or focal parenchymal lesions. No hydronephrosis. US/US renal BI IMPRESSION: No ultrasound evidence of kidney stones or hydronephrosis. Assessment & Plan Assessment & Plan (1) Calculus, renal: Code(s): N20.0 - Calculus of kidney Category: Medical (2) Right nephrolithiasis: Code(s): N20.0 - Calculus of kidney Category: Medical (3) Overactive bladder: Code(s): N32.81 - Overactive bladder Category: Medical (4) Microscopic hematuria: Code(s): R31.29 - Other microscopic hematuria Category: Medical Plan In office urinalysis results reviewed with the patient today; will send for urine cytology. Educated and stressed the importance of adequate hydration relation to nephrolithiasis, constipation, and overall health and well-being. Continue adding 1 oz of lemon juice to water daily. Patient denies any bothersome urinary issues or concerns at this time. Patient reports to be happy with current voiding parameters. Renal ultrasound in one year Follow-up in 1 year with imaging to be completed prior; or sooner with any issues, concerns, and or questions Orders: Orders AMB Urinalysis Automated Today N20.0 - Calculus of kidney, N32.81 - Overactive bladder US renal BI 1 Year N20.0 - Calculus of kidney Urine Cytology Today R31.29 - Other microscopic hematuria Patient Instructions: The patient had an opportunity to ask questions regarding the treatment plan. All questions were answered. Physical exam, labs, and imaging were discussed and reviewed in detail. As well as risks, benefits, and discussion of treatment choices. No major barriers to understanding were identified. The patient expressed understanding and agreement with the above treatment plan. The patient was made aware they should contact our office by phone for worsening of their current condition, the appearance of new symptoms, or with any questions or concerns. Compliance is encouraged with any medications and follow up testing that is ordered. It is a privilege to be allowed the opportunity to participate in? your urological care.? Again, if you have any questions or concerns If you have any questions or concerns please do not hesitate to contact me. The office is [phone]. This note is constructed using voice recognition software. While every effort has been made to ensure accuracy livestock broker errors may have been included. Yours sincerely, LESLY Elena Coding Level of Care Code Est Pt Level 3 (67041) Diagnoses Calculus, renal N20.0 Right nephrolithiasis N20.0 Overactive bladder N32.81 Microscopic hematuria R31.29
== END 2024-06-12 08:32 | disposition home or self-care (01) ==
PROVIDERS: PCP Nurse Practitioner Family; Visit Provider Nurse Practitioner Family
DX: N20.0 Calculus of kidney (principal); N32.81 Overactive bladder; R31.29 Other microscopic hematuria
CPT/HCPCS: 99213

== ENCOUNTER 2024-06-12 07:43 | Outpatient (REF) | payer OTHER, SELFPAY ==
[2024-06-12 16:56] LABS: Urine Cytology See Pathology rpt
== END 2024-06-12 07:44 | disposition home or self-care (01) ==
LOC: HO.LAB 07:43
PROVIDERS: PCP Nurse Practitioner Family; Visit Provider Nurse Practitioner Family
DX: R31.29 Other microscopic hematuria (principal)
CPT/HCPCS: 81003; 88112

== ENCOUNTER 2025-05-25 14:48 | Outpatient (REF) | payer OTHER, SELFPAY ==
--- NOTE | ~2025-05-25 | US_ITS ---
EXAMINATION: US RETROPERITONEAL LIMITED (RENAL ONLY) CLINICAL INFORMATION: N20.0 - Calculus of kidney. COMPARISON: Ultrasound on April 18, 2024 TECHNIQUE: Real-time imaging of the kidneys. FINDINGS: RIGHT KIDNEY: 11.0 cm in sagittal length. The kidney is normal in size, contour, and echogenicity. Renal cortical thickness is normal. No calculi or focal parenchymal lesions. No hydronephrosis. LEFT KIDNEY: 11.4 cm in sagittal length. The kidney is normal in size, contour, and echogenicity. Renal cortical thickness is normal. No calculi or focal parenchymal lesions. No hydronephrosis. US/US renal BI IMPRESSION: No ultrasound evidence of shadowing renal stone or hydronephrosis on either side. Electronically signed by: Huang Michelle MD 05/25/2025 03:24 PM SANJANA
--- OUTSIDE RECORDS SUMMARY | 2025-05-25 15:05 | XMS_ITS | Encounter Summary ---
Author Organization [facility] Address [address] [place] [id number] Phone Care Team Providers Care Splitting Machine Operator Name Role Phone Althea Gibson MD Primary Care Provider [phone] Encounter Details Date Type Department Care Team (Late st Contact Info) Description 02/18/2017 Conversion Encounter [facility] [place] [address] [place] [address] Social History Tobacco Use Types Packs/Day Years Used Date Smoking Tobacco: Never Assessed Comments Unknown Sex and Gender Information Value Date Recorded Sex Assigned at Not on file Legal Sex Female 4:28 PM EDT Gender Identity Not on file Sexual Orientation Not on file documented as of this encounter Plan of Treatment Not on file documented as of this encounter Visit Diagnoses Not on filedocumented in this encounter Care Teams Splitting Machine Operator Relationship Specialty Start Date End Date Althea Gibson MD [address] [place] [address] PCP - General 02/12/17 documented as of this encounter
--- OUTSIDE RECORDS SUMMARY | 2025-05-25 15:05 | XMS_ITS | Data Portability ---
Author Organization [place] - [facility], [facility] Address [address] [place] [phone] Care Team Providers Care Scientific Artist Name Role Phone FALLON MATTHEW Primary Care Provider Assessment Encounter Date Assessment Date Assessment LastModified by Organization Details LastModified Time 12/08/2024 12/08/2024 39-year-old female presents for evaluation of the ears. TMs and external auditory canals are normal to inspection. Audiometric testing demonstrates normal hearing with excellent speech discrimination. Tympanometry is normal. Provided reassurance that there is no tympanic membrane perforation. Patient will follow up in our office as needed. [email or web address] Not available 12/08/2024 15:06:55 Plan of Treatment Reminders Order Date Submit Date Provider Last Modified By Organization Details Last Modified Time Details Appointments None record ed. Lab None record ed. Referral None record ed. Procedures None record ed. Surgeries None record ed. Imaging None record ed. Medication Orders None record ed. Patient TargetsNo targets recorded. Patient InstructionsNo instructions recorded. Reason for Referral None Reported. Results Created Date Observation Date Name Description Value Unit Range Abnormal Flag Note LastModifiedBy Organization Detail LastModifiedTime 12/09/19 25 audio gram No observ ation record ed. BARCODE Not Available 2024 15:13:17 Result Notes None recorded. Problems Name Problem SNOMED Code Status Onset Date Resolution Date Notes Provider Name and Address Organization Details Recorded Time Abnormal auditory perception 36049303 Active 025 CHILANGO GOMEZ, AUD [address] [facility], [address], [place], [phone] , [facility] - [facility] 14:30:07 Problem Notes None recorded. Procedures Surgical History Date Name Laterality Status Provider Name and Address Organization Details Recorded Time 12/08/2024 Air & Speech Audio with Tymps - 46651, 31611 & 17037 completed CHILANGO GOMEZ, AUD 100 [facility] [address], [place], [address], [place] - [facility] 12/08/2024 14:29:56 Imaging Results None recorded. Procedure Notes None recorded. Medical Equipment None Reported. Allergies Allergen ID Allergen Name Allergen Category Reaction Reaction Severity Criticality Documentation Date Start Date Code Code System Note Provider Name and Address Organization Details Recorded Time [id number] doxycycli ne Not available Not available Not available Not available 12/08/2024 3640 RxNorm Garima ruiz [facility] 14:40:29 Medications Name Sig Start Date Stop Date Status Note LastModified by Organization Details LastModified Time propranolol ER 60 mg capsule,24 hr,extended release TAKE 1 CAPSULE BY MOUTH EVERY DAY active Not Available Not Available No t Available sumatriptan 50 mg tablet TAKE 1-2 TABLETS BY MOUTH DAILY NEEDED FOR HEADACHE INSUARNCE MAX 9 PER 30 DAYS active Not Available Not Available No t Available norethindron e (contracepti ve) 0.35 mg tablet TAKE 1 TABLET BY MOUTH EVERY DAY active Not Available Not Available No t Available Vitamin D3 50 mcg (2,000 unit) tablet 50 micrograms every day by oral route. 2024 active Not Available Not Available Not Avai lable riboflavin (vitamin B2) 400 mg tablet 400 mg every day by oral route. active Not Available Not Available No t Available Vitals None Recorded Social History Question Answer Notes LastModified by Organizat ion Details LastModified Time Tobacco Smoking Status Never Smoker Garima ruiz [facility] 12/08/2024 14:40:44 What Type Of Environmental Emergencies Planner Do You Use? None [email or web address] Information not available 12/08/2024 Do You Have Any Pets? Yes [email or web address] Information not available 12/08/2024 Are You Passively Exposed To Smoke? No [email or web address] Information not available 12/08/2024 Are There Any Smokers In Your House? No [email or web address] Information not available 12/08/2024 Sex: Unknown Functional Status Question Answer Note LastModified by Organization Details LastModified Time Do you use any illicit or recreational drugs? No [email or web address] Information not available 12/08/2024 Do you or have you ever used any other forms of tobacco or nicotine? No [email or web address] Information not available 12/08/2024 What is your level of alcohol consumption? None [email or web address] Information not available 12/08/2024 What type of noise exposure are you exposed to? noExposureToExcessiveNoise [email or web address] Infor mation not available 12/08/2024 Mental Status None recorded. Family History Relationship Description Onset Age of this Age Resolved Age Notes LastModified by Organization Details LastModified Time Mother Migraine [email or web address] Not avail able 12/08/2024 14:40:33 Maternal Aunt Migraine [email or web address] No t available 12/08/2024 14:40:33 Medical History Condition Response Allergies/Hayfever N Heart Problems N Anxiety N Tonsil Infections N Emphysema N Migraines Y Thyroid Problems N Glaucoma N Depression N COPD N Developmental Delay N Nasal or Sinus Problems N Anemia N Immune System Disorder N Anesthesia Complications N Heart Attack ([place]) N Other Skin Condition N Diabetes N Rhinitis N Bleeding Disorder N Food Allergy N Arthritis N Hearing Loss N Hyperlipidemia N Cancer N Stroke N Dementia N Nasal polyps N Asthma N High Cholesterol N Sleep Disorder N GERD/Reflux N Liver Disease N Headaches Y Fibromyalgia N Hypertension N Speech Delay N Kidney Disease N Gynecological HistoryNo gynecological history recorded. Obstetrics History GPAL:G 0 P 0 0 0 0 Past Encounters Encounter ID Performer Location Encounter Start Date Encounter Closed Date Diagnosis/Indication Diagnosis SNOMED-CT Code Diagnosis ICD10 Code Diagnosis IMO Codes Diagnosis Note [id number] MONSE BARCLAY PA-C [facility] [address] [phone] 12/08/2024 14:10:44 12/08/2024 16:07:45 Ear examination normal 715929300 Z01.10 [id number] Right Ear:Normal hearing with excellent speech discrimina tion.Type A tympanogra m.Left Ear:Normal hearing with excellent speech discrimina tion.Type A tympanogra m. Health Concerns Section Related Observation LastModified by Organization Detai ls LastModified Time None Recorded Concern Status LastModified by Organization Details LastModified Time None Recorded Advance Directives Directive None Recorded Payers Insurance Date Sequence Insurance Name Policy Number Policy Bowden Covered Member ID Bowden Member ID Guarantor Name 12/08/2024 1 [employer] [id number] Jasmyne Emanuel [id number] Jasmynegemma Emanuel Notes Date Note Type Note Provider Name and Address Organization Details Recorded Time 12/08/2024 text/html ROS as noted in the HPI 39-year-old female presents for evaluation of the ears. Her primary suspected a right-sided tympanic membrane perforation. Patient denies perceivable hearing loss. Denies ear pain or drainage. History of recurrent ear infections during childhood. Denies prior surgeries. Occasional Qtip use. History of seasonal allergies. MONSE BARCLAY PA-C [address] [place] [address], [phone], [facility] - [facility] 12/08/2024 15:07:37 OBGyn Episode No OBEpisode recorded.
--- OUTSIDE RECORDS SUMMARY | 2025-05-25 15:05 | XMS_ITS | Clinical Summary ---
Author Organization [facility] Address [address] [place] [address] Phone Care Team Providers Care Patent Searcher Name Role Phone Althea Gibson MD Primary Care Provider [phone] Immunizations Immunization Administration Dates Next Due DTP 11/28/1991, 7,03/15/1987,01/10 HPV, Quadrivalent 12/21/2007,05/03/2007,03/02/20 07 Hep B, ped/adol 03/28/1998,1997,09/26/1997 Influenza, injectable, trivalent 06/23/2007 MMR 09/26/1997,11/28/1991 Meningococcal Conj (Menactra) MCV4P 11/25/2006 OPV 11/28/1991,03/15/1987,01/10/1987 Td (adult) (Tenivac), 5 Lf t etanus toxoid, PF, adsorbed 03/14/1999 Tdap 12/21/2007 Social History Tobacco Use Types Packs/Day Years Used Date Smoking Tobacco: Never Assessed Comments Unknown Sex and Gender Information Value Date Recorded Sex Assigned at Not on file Legal Sex Female 4:28 PM EDT Gender Identity Not on file Sexual Orientation Not on file Plan of Treatment Health Maintenance Due Date Last Done Comments Varicella Vaccines (1 of 2 - 13+ 2-dose series) 11/02/1999 DTaP,Tdap,and Td Vaccines (6 - Td or Tdap) 12/20/2017 12/21/2007, 03/14/1999, 11/28/1991, Additional history exists Influenza Vaccines (#1) 2025 06/23/2007 COVID-19 Vaccine ( season) 2025 IPV Vaccines Completed 11/28/1991, 03/05, 01/10/1987 MMR Vaccines Completed 09/26/1997, 11/28/1991 Hepatitis B Vaccines Completed 03/28/1998, 1997, 09/26/1997 Meningococcal Vaccine Aged Out 11/25/2006 No emmanuel maricruz eligible based on patient's age to complete this topic HPV Vaccines Completed 12/21/2007, 04/06, 03/02/2007 HIB Vaccines Aged Out No longer eligi ble based on patient's age to complete this topic Hepatitis A Vaccines Aged Out No long er eligible based on patient's age to complete this topic Men B Vaccine Aged Out No longer elig ible based on patient's age to complete this topic Pneumococcal Vaccine Aged Out No long er eligible based on patient's age to complete this topic Care Teams Patent Searcher Relationship Specialty Start Date End Date Althea Gibson MD [address] [place] [address] UGO Billy [address] PCP - General 02/12/17
== END 2025-05-25 14:49 | disposition home or self-care (01) ==
LOC: HO.HMGCX 14:48
PROVIDERS: PCP Student in an Organized Health Care Education/Training Program; Visit Provider Nurse Practitioner Family
DX: N20.0 Calculus of kidney (principal)
CPT/HCPCS: 76775

== ENCOUNTER → 2025-05-25 14:52 | Outpatient (BNV) | payer OTHER, SELFPAY | PROVIDERS: PCP Student in an Organized Health Care Education/Training Program; Visit Provider Radiology Body Imaging | DX: N20.0 Calculus of kidney (principal) | CPT/HCPCS: 76775 ==

== ENCOUNTER 2025-06-12 07:39 | Outpatient (AMB) | payer OTHER, SELFPAY ==
--- NOTE | 2025-06-12 07:41 | MHC.OFFVIS ---
Intake Visit Reasons: 1y/US/UA Intake Note: Patient is present for 1Y/US/UA Urology Medication:VITAMIN B2 Antibiotic Allergy:DOXYCYCLINE Blood Thinner:NONE Pocket Maker Required: No Allergies doxycycline Adverse Reaction (Verified 06/12/25 08:27) Nausea Medication List - Last Reconciled 06/12/25 by LESLY Elena naproxen 500 mg PO BID PRN propranolol ER 60 mg PO DAILY riboflavin (vitamin B2) 400 mg PO DAILY sumatriptan succinate 50 - 100 mg PO DAILY PRN HPI Comments Details: Jasmyne is a pleasant 39-year-old female patient. She presents to the office today for a follow up of her nephrolthiasis. In discussion with the patient today she reports to be feeling and doing well. She denies having had any bothersome urinary issues or concerns since her last office visit here approximately 1 year ago. In office urinalysis results reviewed with the patient today. Most recent renal imaging results reviewed with the patient today. 05/29 bilateral kidneys are normal in size, contour, and echogenicity. No renal calculi, lesions, and or hydronephrosis noted bilaterally. She denies urinary urgency, incontinence, nocturia, hematuria, dysuria, foul smelling urine, changes to urinary stream, flank pain, fever, and or chills. She otherwise offers no other issues or concerns at this time. All questions were answered. 07/27 Urine cytology: Negative for high-grade urothelial carcinoma. [facility] Medical History Right nephrolithiasis Migraine Review of Systems Const All systems reviewed & are unremarkable except as noted in HPI and below Physical Exam Const General: cooperative, healthy appearing, comfortable, no acute distress, well developed, alert and awake Orientation/consciousness: patient oriented x3 Limitations: no limitations HEENT Head: Yes normal to inspection, Yes normocephalic and Yes atraumatic Ears: hearing grossly normal bilaterally Eyes General: appearance normal, both eyes and all related structures Neck Neck: Yes normal visual inspection and Yes trachea midline Chest Chest palpation & inspection: normal inspection of the chest Resp Effort & Inspection: normal respiratory effort and able to speak in complete sentences Cardio Rate: regular rate General: Yes no CVA tenderness Back/Spine/Pelvis Back: no CVA tenderness Skin General skin exam: no rashes or lesions noted Neuro General: patient oriented x3 Extrem General: Yes normal to inspection Psych Appearance: grossly normal and well kempt Mental Status: mental status grossly normal Speech and movement: Normal speech and movement present and Clear speech present Affect: normal affect Attitude: cooperative Thought process: Normal thought process present Thought content: Normal thought content present Insight: Good insight present (Psych) Judgement: Good judgement present (Psych) Results AMB Urinalysis, Automated UA Leukoctes 0 Mike/uL Last Edit by ORLY Mcadams on 06/12/25 07:54 UA Nitrite Negative Last Edit by ORLY Mcadams on 06/12/25 07:54 UA Urobilinogen 0.2 mg/dL Last Edit by ORLY Mcadams on 06/12/25 07:54 UA Protein 0 mg/dL Last Edit by ORLY Mcadams on 06/12/25 07:54 UA pH 6.0 Last Edit by Anai Soares CCM on 06/12/25 07:54 UA Blood 0 Kevin/uL Last Edit by Anai Soares CCM on 06/12/25 07:54 UA Specific [place] 1.020 Last Edit by Anai Soares CCM on 06/12/25 07:54 UA Ketone Negative Last Edit by ORLY Mcadams on 06/12/25 07:54 UA Bilirubin 0 mg/dL Last Edit by Anai Soares CCM on 06/12/25 07:54 UA Glucose 0 mg/dL Last Edit by Anai Soares [facility] on 06/12/25 07:54 Results Reviewed Results Reviewed: Laboratory Last Values Urine pH (Auto) 6.0 06/12/25 07:46 Specific [place] (Auto) 1.020 06/12/25 07:46 Urine Protein (Auto) 0 mg/dL 06/12/25 07:46 Glucose (UA)(Auto) 0 mg/dL 06/12/25 07:46 Urine Ketones (Auto) Negative 06/12/25 07:46 Urine Blood (Auto) 0 Kevin/uL 06/12/25 07:46 Urine Nitrite (Auto) Negative 06/12/25 07:46 Urine Bilirubin (Auto) 0 mg/dL 06/12/25 07:46 Urine Urobilinogen (Auto) 0.2 mg/dL 06/12/25 07:46 Leukocyte Esterase (Auto) 0 Mike/uL 06/12/25 07:46 Ordering Physician: Kaelyn Roldan Date of Service: 05/25/25 Procedure(s): US renal BI Accession Number(s): [id number] cc: Kaelyn Roldan; Ofelia Cortes MD~ Reason for Exam: N20.0 - Calculus of kidney EXAMINATION: US RETROPERITONEAL LIMITED (RENAL ONLY) CLINICAL INFORMATION: N20.0 - Calculus of kidney. COMPARISON: Ultrasound on April 18, 2024 TECHNIQUE: Real-time imaging of the kidneys. FINDINGS: RIGHT KIDNEY: 11.0 cm in sagittal length. The kidney is normal in size, contour, and echogenicity. Renal cortical thickness is normal. No calculi or focal parenchymal lesions. No hydronephrosis. LEFT KIDNEY: 11.4 cm in sagittal length. The kidney is normal in size, contour, and echogenicity. Renal cortical thickness is normal. No calculi or focal parenchymal lesions. No hydronephrosis. US/US renal BI IMPRESSION: No ultrasound evidence of shadowing renal stone or hydronephrosis on either side. Assessment & Plan Assessment & Plan (1) Calculus, renal: Code(s): N20.0 - Calculus of kidney Category: Medical (2) Microscopic hematuria: Code(s): R31.29 - Other microscopic hematuria Category: Medical Plan In office urinalysis results reviewed with the patient today. Educated and stressed the importance of adequate hydration relation to nephrolithiasis as well as overall health and well-being Continue adding 1 oz of lemon juice to water daily. Patient denies any bothersome urinary issues or concerns at this time. Patient reports to be happy with current voiding parameters. Renal ultrasound in one year Follow-up in 1 year with imaging to be completed prior; or sooner with any issues, concerns, and or questions Orders: Orders AMB Urinalysis Automated Today Z13.9 - Encounter for screening, unspecified US renal BI 1 Year N20.0 - Calculus of kidney Patient Instructions: The patient had an opportunity to ask questions regarding the treatment plan. All questions were answered. Physical exam, labs, and imaging were discussed and reviewed in detail. As well as risks, benefits, and discussion of treatment choices. No major barriers to understanding were identified. The patient expressed understanding and agreement with the above treatment plan. The patient was made aware they should contact our office by phone for worsening of their current condition, the appearance of new symptoms, or with any questions or concerns. Compliance is encouraged with any medications and follow up testing that is ordered. It is a privilege to be allowed the opportunity to participate in? your urological care.? Again, if you have any questions or concerns If you have any questions or concerns please do not hesitate to contact me. The office is [phone]. This note is constructed using voice recognition software. While every effort has been made to ensure accuracy crocodile farmer errors may have been included. Yours sincerely, LESLY Elena Coding Level of Care Code Est Pt Level 3 (13931) Diagnoses Calculus, renal N20.0 Microscopic hematuria R31.29
--- OUTSIDE RECORDS SUMMARY | 2025-06-12 08:04 | XMS_ITS | Clinical Summary ---
Author Organization [facility] Address [address] [place] [address] Phone Care Team Providers Care Self Rising Flour Mixer Name Role Phone Althea Gibson MD Primary Care Provider [phone] Immunizations Immunization Administration Dates Next Due DTP [...] age to complete this topic Care Teams Self Rising Flour Mixer Relationship Specialty Start Date End Date Althea Gibson MD [address] [place] [address] UGO Billy [address] PCP - General 02/12/17
--- OUTSIDE RECORDS SUMMARY | 2025-06-12 08:04 | XMS_ITS | Encounter Summary ---
Author Organization [facility] Address [address] [place] [phone] Phone Care Team Providers Care Financial Institution Branch Manager Name Role Phone Althea Gibson MD Primary Care Provider Encounter Details Date Type Department Care Team (Late st Contact Info) Description 02/18/2017 Conversion Encounter [facility] [place] [address] [place] [address] Social History Tobacco Use Types Packs/Day Years [...] on filedocumented in this encounter Care Teams Financial Institution Branch Manager Relationship Specialty Start Date End Date Althea Gibson MD [address] [place] [address] PCP - General 02/12/17 documented as of this encounter
== END 2025-06-12 08:16 | disposition home or self-care (01) ==
LOC: HO.HUSH 07:40
PROVIDERS: Visit Provider Nurse Practitioner Family
DX: N20.0 Calculus of kidney (principal); R31.29 Other microscopic hematuria; Z13.9 Encounter for screening, unspecified
CPT/HCPCS: 99213

== ENCOUNTER → 2025-06-12 07:39 | Outpatient (BNVA) | payer OTHER, SELFPAY | PROVIDERS: Visit Provider Nurse Practitioner Family | DX: N20.0 Calculus of kidney (principal); R31.29 Other microscopic hematuria | CPT/HCPCS: 81003 ==